=== PATIENT | male | born 1990 | race African-American/Black ===

== ENCOUNTER 2018-01-23 16:41 | Emergency (ER) | payer SELFPAY ==
[2018-01-23] MEDS ORDERED: Erythromycin Base 0.5% Oint 1 GM TUBE ONE (17:21)
== END 2018-01-23 17:38 | disposition home or self-care (01) ==
LOC: ERS 16:41
DX: H10.9 Unspecified conjunctivitis (principal); F17.210 Nicotine dependence, cigarettes, uncomplicated
CPT/HCPCS: 99282

== ENCOUNTER 2018-02-26 10:24 | Emergency (ER) | payer SELFPAY | END 2018-02-26 11:06 | disposition home or self-care (01) | LOC: ERS 10:24 | DX: Z02.79 Encounter for issue of other medical certificate (principal); F17.210 Nicotine dependence, cigarettes, uncomplicated; Z71.6 Tobacco abuse counseling | CPT/HCPCS: 99406 ==

== ENCOUNTER 2023-03-19 08:06 | Emergency (ER) | payer OTHER, SELFPAY ==
[2023-03-19] MEDS ORDERED: Ketorolac Tromethamine 30 MG/ML VIAL ONE (09:32)
[2023-03-19] MEDS ORDERED: Diazepam 5 MG TAB ONE (09:32)
== END 2023-03-19 10:00 | disposition home or self-care (01) ==
LOC: ERS 08:06
DX: S13.4XXA Sprain of ligaments of cervical spine, initial encounter (principal); M25.512 Pain in left shoulder; F17.290 Nicotine dependence, other tobacco product, uncomplicated; V89.2XXA Person injured in unspecified motor-vehicle accident, traffic, initial encounter
CPT/HCPCS: 72125; 96372; J1885